=== PATIENT | male | born 1990 ===

== ENCOUNTER 2018-01-01 13:19 | Outpatient (CLI) | payer OTHER ==
[2018-01-01 14:19] LABS: eGFR (Non-African) > 60
[2018-01-01 16:51] LABS: BASO % 0.2 % (0.0-1.5); EOS % 0.7 % (0.0-6.8); LYMPH ABS # 1.42 thou/uL (0.60-4.00); MCH. 29.2 pg (28.0-34.0); MCV 87.2 fL (80.0-100.0); MONOCYTE % 5.1 % (0.0-11.0); PLATELET COUNT 309 thou/uL (130-400)
== END 2018-01-01 13:20 ==
LOC: LAB 13:19
PROVIDERS: ATTEND Nurse Practitioner Family
DX: R07.9 Chest pain, unspecified (principal); R06.02 Shortness of breath
CPT/HCPCS: 36415; 80053; 85025